=== PATIENT | female | born 1940 | race African-American/Black ===

== ENCOUNTER 2020-10-20 13:25 | Emergency (ER) | payer MEDICARE, MEDICAID ==
[~2020-10-20] VITALS: Ht 166.4 cm; Wt 114.0 kg
[2020-10-20] MEDS ORDERED: DILT-26 PO (13:37)
[2020-10-20] MEDS ORDERED: XAR15 GT (13:37)
[2020-10-20] MEDS ORDERED: METO-539 PO (13:37)
[2020-10-20] MEDS ORDERED: ERGO500013 (13:37)
[2020-10-20] MEDS ORDERED: ONDANSETRON HCL 4MG/2ML INJ IV STA (14:24)
[2020-10-20] MEDS ORDERED: SODIUM CHLORIDE 0.9% 1,000 ML IV ONE (14:30)
[2020-10-20 15:21] LABS: BASOPHILS % 0.4 % (0.0-2.0); HEMATOCRIT. 30.6 % (36.0-48.0); HEMOGLOBIN. 10.1 g/dL (12.0-16.0); LYMPHOCYTES % 30.4 % (20.0-50.0); MEAN CORPUSCULAR HEMOGLOBIN 31.3 pg (28.0-32.0); MEAN CORPUSCULAR VOLUME 94.5 fL (81.0-99.0); MEAN PLATELET VOLUME 7.2 fl (7.4-10.4); MONOCYTES % 10.9 % (2.0-8.0); NEUTROPHILS % 52.3 % (40.0-76.0); PLATELET 233 x1000/uL (130-400); RED BLOOD CELL COUNT 3.24 mill/uL (4.2-5.4); RED CELL DISTRIBUTION WIDTH 13.7 % (11.6-14.6)
[2020-10-20 15:59] LABS: CHLORIDE 108 mEq/L (98-107)
[2020-10-20 16:58] LABS: CLARITY URINE CLEAR (CLEAR); COLOR URINE YELLOW (YELLOW); KETONES URINE TRACE (NEGATIVE); LEUKOCYTE ESTERASE URINE NEGATIVE (NEGATIVE); NITRITE URINE NEGATIVE (NEGATIVE); OCCULT BLOOD URINE NEGATIVE (NEGATIVE); PROTEIN URINE TRACE (NEGATIVE); UROBILINOGEN URINE 0.2 E.U./dL (0.2-1.0)
[2020-10-20] MEDS ORDERED: LOPERAMIDE HCL 2MG CAPSULE PO ONE (17:00)
[2020-10-20] MEDS ORDERED: IMOD MT (17:11)
[2020-10-20 17:28] VITALS: BP 117/70
== END 2020-10-20 17:40 | disposition home or self-care (01) ==
LOC: ER 13:25
DX: R53.1 Weakness (principal); R42 Dizziness and giddiness; R19.7 Diarrhea, unspecified; Z90.710 Acquired absence of both cervix and uterus; Z98.890 Other specified postprocedural states; Z88.0 Allergy status to penicillin
CPT/HCPCS: 36415; 71045; 80053; 81003; 85025; 93005; 96374; 99285; J2405; J7030